=== PATIENT | male | born 1995 | race Caucasian/White ===

== ENCOUNTER 2020-02-15 14:26 | Emergency (ER) | payer SELFPAY ==
[2020-02-15 14:35] VITALS: BP 125/65; PULSE 89; RESP 14; TEMP 37; O2SAT 98; BMI 24.2
--- NOTE | 2020-02-15 14:59 | W.ED.MALEGU ---
HPI - Male Genitourinary General: Chief complaint: Urogenital-Male Stated complaint: POSS UTI Time Seen by Provider: 02/15/20 14:27 Source: patient Mode of arrival: ambulatory Limitations: no limitations History of Present Illness: HPI Narrative: Patient is a 24-year-old male who presents to ED today with complaints of dysuria, penile discharge, and pain about the tip of his penis/urethra. Symptoms have been present over the past 3 to 4 days. Patient tells me he is monogamous with one female partner. He denies anal intercourse. Patient denies rashes/lesions/sores to his genitalia. He denies scrotal redness, swelling, or pain. MD Complaint: penile discharge and dysuria Onset (ago): day(s) Duration: constant Location: penis Relieving factors: none Exacerbating factors: urination Associated symptoms: Reports no associated symptoms and dysuria; Deny hematuria, nausea, urinary incontinence or vomiting Related Data: Sexually active: Yes Review of Systems General: Reports: 10 or more systems reviewed and unremarkable except in HPI and below Const: Denies: fever, chills, body aches, change in appetite, change in weight, fatigue or malaise ENMT: Denies: throat pain or painful swallowing GI: Denies: abdominal pain, nausea, vomiting or diarrhea : Reports: painful urination and penile discharge; Denies: flank pain, difficulty urinating, urinary frequency, urinary urgency, urinary hesitancy, urinary dribbling, difficulty starting urination, change in urine stream, decreased urine ouput, urinary incontinence, blood in urine, genital lesion, testicular pain, testicular mass, scrotal swelling, painful ejaculations, blood in semen or erectile dysfunction Musc: Denies: back pain Skin/Breast: Denies: rash PFSH ED PFSH: Social History Smoking and tobacco status: never smoked Physical Exam Const: COMMON NORMALS: no apparent distress, average body habitus, oriented x3, no limitations, healthy appearing, alert and well nourished GI: COMMON NORMALS: normal to inspection, nondistended, normoactive bowel sounds, soft to palpation, non-tender, no hepatosplenomegaly and no masses PALPATION: Yes soft and Yes no hepatosplenomegaly : COMMON NORMALS: Yes no CVA tenderness, Yes testes normal, Yes scrotum normal and Yes no scrotal swelling BLADDER/KIDNEY EXAM: Yes no CVA tenderness PENIS: normal penis and circumcised MEATUS: meatal discharge SCROTUM: Yes testes descended bilaterally TESTES: Yes testicular lie normal Back/Pelvis: COMMON NORMALS: no CVA tenderness Neuro: COMMON NORMALS: oriented x3 SENSORIUM/ORIENTATION: Yes alert Skin: COMMON NORMALS: no rashes or lesions noted GENERAL SKIN EXAM: no rashes or lesions noted Course Vital Signs: Vital signs: Vital Signs Temperature 98.6 F 02/15/20 14:35 Pulse Rate 89 02/15/20 14:35 Respiratory Rate 14 02/15/20 14:35 Blood Pressure 125/65 02/15/20 14:35 Pulse Oximetry 98 02/15/20 14:35 MDM - Male MDM Narrative: Medical decision making narrative: will go ahead and treat for gonorrhea/chlamydia here with rocephin/azithromycin; will culture urine; will go ahead and place him on bactrim at home to cover for UTI/prostatitis Lab Data: Labs: Lab Results 02/15/20 Range/Units 14:57 Urine Color Yellow (Yellow) Urine Appearance Cloudy (CLEAR) Urine pH 7 (5-7) Ur Specific Gravit y 1.010 (1.005-1.030) Urine Protein Neg (Negative) Urine Glucose (UA) Norm (Normal) Urine Ketones Negative (Negative) Urine Blood 2+ H (Negative) Urine Nitrate Negative (Negative) Urine Bilirubin Neg (NEGATIVE) Urine Urobilinogen Norm (Negative) mg/dL Ur Leukocyte Sada ase 1+ H (Negative) Urine RBC 5-10 H (0-2) /hpf Urine WBC 25-40 H (0-5) /hpf Ur Squamous Epith Cells 0-4 H (0-5) Urine Bacteria 2+ H (NONE) Discharge Plan Discharge Patient Disposition: Home, Self-Care Clinical Impression: Discharge from penis, Dysuria Condition: Stable Prescriptions: New Bactrim DS 800-160 mg tablet 1 tab PO BID 7 Days Qty: 14 RF: 0 Discharge Orders: Discharge Order (Routine); Ordered 02/15/20 Ordered By: Rita Connelly Activity Restrictions/Additional Instructions: Abstain from all sexual activity until you contact medical records in a few days to get your results. If positive you will need to go to the health department for a test of cure. All of your sexual partners will also need to be tested and treated. Coding Level of Care Code ED Radiological Technician for Chg Fwd Exam Expanded Problem Focused
[2020-02-15 15:25] LABS: Add Urine Microscopic? YES; Bilirubin Urine Neg (NEGATIVE); Blood Urine 2+ (Negative); Glucose Urine UA Norm (Normal); Ketones Urine Negative (Negative); Leukocyte Esterase Urine 1+ (Negative); Nitrate Urine Negative (Negative); Protein Urine Neg (Negative); Urine Appearance Cloudy (CLEAR); Urine Color Yellow (Yellow); Urobilinogen Urine Norm (Negative); pH Urine 7 (5-7)
[2020-02-15 15:30] LABS: Add Urine Culture? Yes; Bacteria Urine 2+; Squamous Epithelial Cell Urine 0-4 (0-5); WBC Urine 25-40 /hpf (0-5)
[2020-02-15] MEDS: cefTRIAXone 250 mg SDV IM (16:04)
[2020-02-15] MEDS: azithromycin 250 mg Tablet 1000 MG PO (16:05)
[2020-02-15 16:14] VITALS: BP 118/68; PULSE 68; RESP 17; O2SAT 95
== END 2020-02-15 16:23 | disposition home or self-care (01) ==
PROVIDERS: Emergency Provider Physician Assistant
DX: R36.9 Urethral discharge, unspecified (principal); R30.0 Dysuria
CPT/HCPCS: 12345; 81001; 87086; 87491; 87591; 96372; 99283; J0696; Q0144

== ENCOUNTER 2020-02-16 16:03 | Emergency (ER) | payer SELFPAY ==
[2020-02-16 16:12] VITALS: BP 123/76; PULSE 81; RESP 16; TEMP 36.6; O2SAT 97; BMI 24.2
--- NOTE | 2020-02-16 16:24 | W.ED.MALEGU ---
HPI - Male Genitourinary General: Chief complaint: Urogenital-Male Stated complaint: STD? Time Seen by Provider: 02/16/20 16:11 History of Present Illness: Associated symptoms: Deny dysuria, hematuria, nausea or vomiting Review of Systems Const: Denies: fever, chills or fatigue Eyes: Denies: change in vision or eye discomfort ENMT: Denies: throat pain, painful swallowing, nasal discharge or nasal congestion Card: Denies: chest pain, palpitations, edema, swelling of feet/ankles, shortness of breath on exertion or shortness of breath when lying down Resp: Denies: shortness of breath, productive cough or non-productive cough GI: Denies: abdominal pain, nausea, vomiting, diarrhea, constipation or blood in stool : Denies: flank pain, difficulty urinating, painful urination or blood in urine Musc: Denies: neck pain, back pain or extremity swelling Skin/Breast: Denies: rash or new lesion Neuro: Denies: headache, numbness in extremities or weakness in extremities PFSH ED PFSH: Social History Smoking and tobacco status: current every day smoker Course Vital Signs: Vital signs: Vital Signs Temperature 97.8 F 02/16/20 16:12 Pulse Rate 81 02/16/20 16:12 Respiratory Rate 16 02/16/20 16:12 Blood Pressure 123/76 02/16/20 16:12 Pulse Oximetry 97 02/16/20 16:12 Discharge Plan Discharge Prescriptions: No Action Bactrim DS 800-160 mg tablet 1 tab PO BID 7 Days Qty: 14 RF: 0 Coding Level of Care Code ED Electrician Control Equipment for Faye Bauer
== END 2020-02-16 17:27 ==
LOC: ER 16:44
PROVIDERS: Emergency Provider Emergency Medicine
DX: Z76.89 Persons encountering health services in other specified circumstances (principal)
CPT/HCPCS: 99281

== ENCOUNTER 2022-05-22 06:48 | Outpatient (CLI) | payer OTHER, SELFPAY ==
--- NOTE | 2022-05-22 07:15 | US_ITS ---
WS: [id number] ULTRASOUND SOFT TISSUES LEFT inguinal region. HISTORY: left groin pain COMPARISON: None available. TECHNIQUE: 2-D and color Doppler imaging is submitted. Palpable area and area of pain corresponds to a lymph node measuring 1.4 x 1.1 x 1.6 cm. There is mil d asymmetric thickening of the cortex and decreased attenuation throughout the rounded lymph node. Pa rtial replacement of the normal fatty hilum. There are a few adjacent smaller lymph nodes which are n ot as rounded and the cortex is not as thick. There is central vascularity. US/US soft tissue/extremity [id number] IMPRESSION: 1. Mildly abnormal lymph node at the LEFT groin. This could be a reactive lymp h node. Early neoplastic disease is not excluded if there is a history of malig beni. 2. There are a few adjacent smaller lymph nodes which are more normal in size with no asymmetric thickening of the cortex.
== END 2022-05-22 06:49 | disposition home or self-care (01) ==
LOC: RAD 06:48
PROVIDERS: Visit Provider Surgery
DX: R10.32 Left lower quadrant pain (principal); R19.09 Other intra-abdominal and pelvic swelling, mass and lump
CPT/HCPCS: 76882

== ENCOUNTER 2022-07-13 11:56 | Emergency (ER) | payer OTHER, SELFPAY ==
[2022-07-13 12:08] VITALS: BP 128/81; PULSE 86; RESP 18; TEMP 36.8; O2SAT 97; BMI 21.9
--- NOTE | 2022-07-13 12:52 | ED_ITS ---
HPI - Wound/Laceration General: Chief Complaint: Wound/Laceration Stated Complaint: finger laceration Time Seen by Provider: 07/13/22 12:15 Source: patient Mode of arrival: ambulatory Limitations: no limitations History of Present Illness: Patient is a 27-year-old male who presents to ED today with a complaint of a left index finger laceration that he sustained just prior to arrival after he caught it on a piece of a mower while he was changing the blade. Onset (ago): hour(s) Extremity Location: Left: hand Place: home Patient tetanus UTD: No Context: accidental Associated symptoms: Reports no associated symptoms Review of Systems Musc: Reports: extremity pain (L index finger) Skin/Breast: Reports: other (laceration L index finger) Neuro: Denies: numbness in extremities, weakness in extremities or sensory changes PFS ED PFSH: Family History Mother Diabetes Social History Smoking and tobacco status: current every day smoker Physical Exam Const: COMMON NORMALS: no acute distress, no limitations and alert GENERAL APPEARANCE: cooperative Extremity: COMMON NORMALS: normal to inspection GENERAL: Yes normal exam except as noted LEFT UPPER EXTREMITY: Yes hand & digits OTHER: pt has a flap laceration involving the fatty palmar pad of his L index finger; laceration is not deep enough for bony involvement; avulsed flap still appears viable and will be repaired; NV intact Neuro: COMMON NORMALS: moves all extremities, no focal motor deficits and no sensory deficits noted SENSORIUM/ORIENTATION: Yes alert Procedures Laceration Laceration 1: Site: hand (L index finger) Side (If applicable): left Size (cm): 1.25 Description: flap Depth: simple, single layer Local Anesthetic: lidocaine 1% (digital block) Amount of anesthesia used (mL): 3.0 Pre-repair: wound explored and irrigated extensively Skin layer closed with: nylon Size (cm): 5-0 Number of sutures: 4 Technique: simple, interrupted Course Vital Signs: Vital signs: Vital Signs Temperature 98.2 F 07/13/22 12:08 Pulse Rate 85 07/13/22 13:09 Respiratory Rate 21 H 07/13/22 13:09 Blood Pressure 124/78 07/13/22 13:09 Pulse Oximetry 96 07/13/22 13:09 Oxygen Delivery Me thod 07/13/22 12:08 MDM - Wound/Laceration Medical Decision Making Wound and infection precautions discussed. Tetanus was updated. Discharge Plan Discharge Patient Disposition: Home Clinical Impression: Laceration of left index finger Qualifiers: Encounter type: initial encounter Damage to nail status: without damage Foreign body presence: without foreign body Qualified Code(s): S61.211A - Laceration without foreign body of left index finger without damage to nail, initial encounter Condition: Stable Prescriptions: New cephalexin 500 mg capsule 500 mg PO Q6H 7 Days Qty: 28 0RF Discontinued sulfamethoxazole-trimethoprim [Bactrim DS] 800-160 mg tablet 1 tab PO BID 10 Days Qty: 20 0RF No Action acetaminophen [Tylenol] 325 mg tablet 325 mg PO QID PRN Discharge Orders: Discharge ED (Routine); Ordered 07/13/22 Ordered By: Rita Connelly Patient Instructions: Finger Laceration (ED) Activity Restrictions/Additional Instructions: Keep wound/laceration clean with warm soap and water twice daily. Monitor for signs of infection such as redness, swelling, increased pain, or drainage. Please seek medical re-evaluation if these occur. If you received sutures today these will need to be removed (unless you were told by the provider that they are absorbable). The provider should have discussed with you the length of time until removal-7 DAYS. You may return to the emergency department for this service. Stand Alone Forms: Work/School Release Coding Level of Care Code ED Draw Frame Runner for Faye Bauer
[2022-07-13] MEDS: tetanus-dipt-pertussis 0.5 mL SDV IM (13:08)
[2022-07-13 13:09] VITALS: BP 124/78; PULSE 85; RESP 21; O2SAT 96
== END 2022-07-13 13:10 | disposition home or self-care (01) ==
PROVIDERS: Emergency Provider Physician Assistant
DX: S61.211A Laceration without foreign body of left index finger without damage to nail, initial encounter (principal); F17.210 Nicotine dependence, cigarettes, uncomplicated; W26.8XXA Contact with other sharp object(s), not elsewhere classified, initial encounter; Z23 Encounter for immunization
CPT/HCPCS: 12001; 90471; 90715; 99283